=== PATIENT | female | born 1975 | race African-American/Black ===

== ENCOUNTER 2016-12-02 11:34 | Day surgery (SDC) | payer BC ==
--- NOTE | ~2016-12-02 | EGD ---
EGD REPORT [facility] [address] [place]. [id number] NAME: CHARITO NAPOLES : [birth year] STATUS : [facility] PAT#: [id number] AGE: 41 ADM/REG DATE : 12/02/16 MR#: [id number] REPORT SERV DATE: 12/02/16 DICTATED BY: KAELYN MORGAN DATE: 12/02/16 REPORT STATUS : Draft TRANSCRIBED BY: [facility] DATE: 12/02/16 Endoscopy Center Patient Name: Charito Napoles Date of : 1975 Attending MD: RUBIN MORGAN MD Procedure Date No Time: 12/02/2016 Procedure: Upper GI endoscopy Indications: Epigastric abdominal pain Referring MD: LIVIER MONAE MD Medicines: See the Anesthesia note for documentation of the administered medications Complications: No immediate complications. Estimated blood loss: None. Procedure: Pre-Anesthesia Assessment: - ASA Grade Assessment: II - A patient with mild systemic disease. - Prior to the procedure, a History and Physical was performed, and patient medications and allergies were reviewed. The patient's tolerance of previous anesthesia was also reviewed. The risks and benefits of the procedure and the sedation options and risks were discussed with the patient. All questions were answered, and informed consent was obtained. Prior Anticoagulants: The patient has taken no previous anticoagulant or antiplatelet agents. After reviewing the risks and benefits, the patient was deemed in satisfactory condition to undergo the procedure. After obtaining informed consent, the endoscope was passed under direct vision. Throughout the procedure, the patient's blood pressure, pulse, and oxygen saturations were monitored continuously. The GIF [id number] was introduced through the mouth, and advanced to the third part of duodenum. The upper GI endoscopy was accomplished without difficulty. The patient tolerated the procedure well. Findings: The examined duodenum was normal. Biopsies were taken with a cold forceps for histology. The entire examined stomach was normal. Biopsies were taken with a cold forceps for histology. The cardia and gastric fundus were normal on retroflexion. The examined esophagus was normal. Impression: - Normal examined duodenum. Biopsied. - Normal stomach. Biopsied. EGD REPORT [address] [address] NAME: CHARITO NAPOLES : [birth year] STATUS : [facility] PAT#: [id number] AGE: 41 ADM/REG DATE : 12/02/16 MR#: [id number] REPORT SERV DATE: 12/02/16 DICTATED BY: KAELYN MORGAN DATE: 12/02/16 REPORT STATUS : Draft TRANSCRIBED BY: [employer] DATE: 12/02/16 - Normal esophagus. Recommendation: - Patient has a contact number available for emergencies. The signs and symptoms of potential delayed complications were discussed with the patient. Return to normal activities tomorrow. Written discharge instructions were provided to the patient. - Regular diet. - Discharge patient to home. - Continue present medications. - Await pathology results. - Return to my office in 3 weeks. Procedure Code(s): --- Professional --- 78722, Esophagogastroduodenoscopy, flexible, transoral; with biopsy, single or multiple Diagnosis Code(s): --- Professional --- R10.13, Epigastric pain CPT copyright 2013 [employer]. All rights reserved. The codes documented in this report are preliminary and upon terminal gauger review may be revised to meet current compliance requirements. RUBIN MORGAN MD 12/02/2016 1:53 PM This report has been signed electronically. Number of Addenda: 0 Note Initiated On: 12/02/2016 1:28 PM Scope Withdrawal Time 0 hours 0 minutes 0 seconds [address] [place] [id number]
[~2016-12-02 11:34] MED LIST: *DENIES; LEXAPRO10 PO
== END 2016-12-02 23:59 | disposition home or self-care (01) ==
LOC: DMU 11:34
PROVIDERS: Internal Medicine Gastroenterology
PROC: 0DB68ZX Excision of Stomach, Via Natural or Artificial Opening Endoscopic, Diagnostic (ICD-10-PCS; 2016-12-02)
PROC: 0DB98ZX Excision of Duodenum, Via Natural or Artificial Opening Endoscopic, Diagnostic (ICD-10-PCS; principal; 2016-12-02 13:00)
DX: K31.89 Other diseases of stomach and duodenum (principal); E11.9 Type 2 diabetes mellitus without complications; Z90.49 Acquired absence of other specified parts of digestive tract; Z98.890 Other specified postprocedural states
CPT/HCPCS: 82962; 84703; 88305